=== PATIENT | female | born 1970 | race Two or more races ===

== ENCOUNTER 2020-02-21 13:20 | Outpatient (CLI) | payer OTHER | END 2020-02-21 23:59 | disposition home or self-care (01) | LOC: WOU 13:20 | PROVIDERS: ATTEND Podiatrist Foot & Ankle Surgery | DX: S91.311D Laceration without foreign body, right foot, subsequent encounter (principal); X58.XXXD Exposure to other specified factors, subsequent encounter | CPT/HCPCS: G0463 ==

== ENCOUNTER 2020-02-24 13:50 | Outpatient (CLI) | payer OTHER | END 2020-02-24 23:59 | disposition home or self-care (01) | LOC: WOU 13:50 | PROVIDERS: ATTEND Podiatrist Foot & Ankle Surgery | DX: S91.311D Laceration without foreign body, right foot, subsequent encounter (principal); X58.XXXD Exposure to other specified factors, subsequent encounter; M79.671 Pain in right foot | CPT/HCPCS: 73630-TC; G0463 ==

== ENCOUNTER 2020-03-02 13:15 | Outpatient (CLI) | payer OTHER | END 2020-03-02 23:59 | disposition home or self-care (01) | LOC: WOU 13:15 | PROVIDERS: ATTEND Podiatrist Foot & Ankle Surgery | DX: S91.311D Laceration without foreign body, right foot, subsequent encounter (principal); X58.XXXD Exposure to other specified factors, subsequent encounter; M79.671 Pain in right foot | CPT/HCPCS: G0463 ==

== ENCOUNTER 2020-03-23 13:30 | Outpatient (CLI) | payer OTHER ==
[2020-03-23 15:30] LABS: BASOPHILS # (AUTO) 0.1 /CMM (0.0-0.2); BASOPHILS % (AUTO) 0.9 % (0.0-2.0); EOSINOPHILS % (AUTO) 0.7 % (0.0-6.0); HEMATOCRIT 38 % (33-45); HEMOGLOBIN 12.6 g/dL (11.5-14.8); LYMPHOCYTES # (AUTO) 1.5 /CMM (0.8-4.8); LYMPHOCYTES % (AUTO) 21.2 % (20.0-44.0); MEAN CORPUSCULAR HGB CONC 33 g/dl (31.0-36.0); MEAN CORPUSCULAR VOLUME 93 fL (82-100); MONOCYTES # (AUTO) 0.4 /CMM (0.1-1.30); MONOCYTES % (AUTO) 4.9 % (2.0-12.0); NEUTROPHILS # (AUTO) 5.2 /CMM (1.8-8.9); NEUTROPHILS % (AUTO) 72.3 % (43.0-81.0); PLATELET COUNT (AUTO) 220 /CMM (150-450); RED BLOOD CELL COUNT(AUTO) 4.08 MIL/uL (4.0-5.2); WHITE BLOOD COUNT (AUTO) 7.1 K/uL (4.3-11.0)
[2020-03-23 15:48] LABS: CREATININE 0.9 mg/dL (0.6-1.3); POTASSIUM 3.7 mmol/L (3.5-5.1)
[2020-03-23 16:21] LABS: C-REACTIVE PROTEIN 0.5 mg/dL (0.0-0.9)
[2020-03-24 15:14] LABS: *ANA ANTI-CENTROMERE B AB <0.2 AI (0.0-0.9); *ANA ANTI-DNA(DS) AB, QN <1 IU/mL (0-9); *ANA ANTI-JO-1 <0.2 AI (0.0-0.9); *ANA ANTICHROMATIN ANTIBODY <0.2 AI (0.0-0.9); *ANA RNP ANTIBODIES <0.2 AI (0.0-0.9); *ANA SJOGREN'S ANTI-SS-A <0.2 AI (0.0-0.9); *ANA SJOGREN'S ANTI-SS-B 3.4 AI (0.0-0.9); *ANAANTI-SCLERODERMA-70 AB <0.2 AI (0.0-0.9); *ANASMITH AB <0.2 AI (0.0-0.9)
== END 2020-03-23 23:59 | disposition home or self-care (01) ==
LOC: WOU 13:30
PROVIDERS: ATTEND Podiatrist Foot & Ankle Surgery
DX: S91.311D Laceration without foreign body, right foot, subsequent encounter (principal); X58.XXXD Exposure to other specified factors, subsequent encounter; M79.671 Pain in right foot
CPT/HCPCS: 36415; 80048-TC; 85025-TC; 85652-TC; 86140-TC; 86225; 86235; 86431-TC; G0463

== ENCOUNTER 2020-03-28 14:40 | Outpatient (CLI) | payer OTHER | END 2020-03-28 23:59 | disposition home or self-care (01) | LOC: MSC 14:40 | PROVIDERS: ATTEND Internal Medicine | DX: R50.9 Fever, unspecified (principal); S91.002D Unspecified open wound, left ankle, subsequent encounter; R76.0 Raised antibody titer; Z87.19 Personal history of other diseases of the digestive system; M45.9 Ankylosing spondylitis of unspecified sites in spine; E03.9 Hypothyroidism, unspecified; Z79.899 Other long term (current) drug therapy ==

== ENCOUNTER 2020-04-02 12:30 | Emergency (ER) | payer OTHER ==
[~2020-04-02] VITALS: Ht 167.6 cm; Wt 56.7 kg
[2020-04-02 12:49] VITALS: BP 138/76
== END 2020-04-02 13:38 | disposition home or self-care (01) ==
LOC: ER 12:34
DX: S90.31XA Contusion of right foot, initial encounter (principal); Z90.89 Acquired absence of other organs; W26.8XXA Contact with other sharp object(s), not elsewhere classified, initial encounter; Y93.89 Activity, other specified; Y92.89 Other specified places as the place of occurrence of the external cause; Y99.8 Other external cause status
CPT/HCPCS: 73630-TC

== ENCOUNTER 2020-04-10 13:06 | Outpatient (CLI) | payer OTHER | END 2020-04-10 23:59 | disposition home or self-care (01) | LOC: MSC 13:06 | PROVIDERS: ATTEND Internal Medicine | DX: R50.9 Fever, unspecified (principal); S91.002D Unspecified open wound, left ankle, subsequent encounter; K90.0 Celiac disease; G89.29 Other chronic pain; M54.9 Dorsalgia, unspecified; E03.9 Hypothyroidism, unspecified; Z82.69 Family history of other diseases of the musculoskeletal system and connective tissue ==

== ENCOUNTER 2020-04-13 13:00 | Outpatient (CLI) | payer OTHER | END 2020-04-13 23:59 | disposition home or self-care (01) | LOC: WOU 13:00 | PROVIDERS: ATTEND Podiatrist Foot & Ankle Surgery | DX: I87.2 Venous insufficiency (chronic) (peripheral) (principal); M79.671 Pain in right foot | CPT/HCPCS: G0463 ==

== ENCOUNTER → 2020-04-19 | Outpatient (CLI) | payer OTHER | END | disposition home or self-care (01) | LOC: WOU 14:30 | PROVIDERS: ATTEND Podiatrist Foot & Ankle Surgery | DX: M79.671 Pain in right foot (principal); I87.2 Venous insufficiency (chronic) (peripheral); E03.9 Hypothyroidism, unspecified | CPT/HCPCS: G0463 ==